=== PATIENT | male | born 1980 ===

== ENCOUNTER 2017-12-29 09:55 | Observation (INO) | payer OTHER ==
--- NOTE | 2017-12-29 10:21 | ED PDOC ---
HPI:STROKE - Time Time: 10:19 - Historian Historian: Patient - Chief Complaint Chief Complaint: other - Onset Date: 12/29/17 Time: 08:00 - Timing Timing: Currently Symptomatic - TPA Positive for Contraindication: Yes Reason tPA is not being Administered: NIH 0 - Notes: Notes:: Pt. with dizziness like room spinning. Goes away when laying down. Has left facial tingles and mild left mid head headache. Not worst in his life. Started at 8am. Dizziness happened 3 times and went away. No chest pain, dyspnea, weakness, vision changes. No leg or arm weakness. NIHSS Stroke Scale - Date/Time Evaluation Performed Date Performed: 12/29/17 Time Performed: 10:24 When Was NIHSS Performed: Baseline - How Severe is the Stroke Level of Consciousness: 0=Alert LOC to Questions: 0=Both comments correct LOC to commands: 0=Obeys both correctly Best Gaze: 0=Normal Visual: 0=No visual loss Facial: 0=Normal Motor Arm - Left: 0=No drift Motor Arm - Right: 0=No drift Motor Leg - Left: 0=No drift Motor Leg - Right: 0=No drift Limb Ataxia: 0=Absent Sensory: 0=Normal Best Language: 0=No aphasia Dysarthia: 0=Normal articulation Extinction & Inattention (Neglect): 0=Normal, no object Score: 0 rTPA Inclusion/Exclusion - Refusal of Treatment Patient Refused Treatment: No - Inclusion Criteria for Altepase Patient is 18 years or Older: Yes The Clinical Diagnosis of Ischemic Stroke That is Causing a Potentially Disabling Neurological Deficit: No Time of Onset is Well Established to be Less Than 270 Minute Before Treatment Would Begin: Yes Risk/Benefit Discussed With Patient/Family Member Present: No Past Medical History Reviewed: Nursing Documentation, Vital Signs Vital Signs: Last Vital Signs Temp 98.5 F 12/29/17 10:02 Pulse 76 12/29/17 10:02 Resp 19 12/29/17 10:02 BP 166/72 H 12/29/17 10:02 Pulse Ox 99 12/29/17 10:02 - Medical History PMH: HTN (not taking meds) - Surgical History Surgical History: No Surg Hx - Family History Family History: States: Unknown Family Hx - Living Arrangements Living Arrangements: With Family - Social History Alcohol: None Drugs: Denies - Home Medications Home Medications: Ambulatory Orders Medication Instructions Recorded No Known Home Med 12/29/17 - Allergies Allergies/Adverse Reactions: Allergies Allergy/AdvReac Type Severity Reaction Status Date / Time ibuprofen Allergy RASH Verified 12/29/17 10:20 Review of Systems ROS Statement: Except As Marked, All Systems Reviewed And Found Negative Neurological: Positive for: Headache, Dizziness Physical Exam - Reviewed Nursing Documentation Reviewed: Yes Vital Signs Reviewed: Yes - Physical Exam Appears: Positive for: Non-toxic, No Acute Distress Head Exam: Positive for: ATRAUMATIC, NORMAL INSPECTION, NORMOCEPHALIC Skin: Positive for: Normal Color, Warm, DRY Eye Exam: Positive for: EOMI, Normal appearance, PERRL ENT: Positive for: Normal ENT Inspection Neck: Positive for: Normal, Painless ROM Cardiovascular/Chest: Positive for: Regular Rate, Rhythm Respiratory: Positive for: CNT, Normal Breath Sounds Gastrointestinal/Abdominal: Positive for: Normal Exam, Soft. Negative for: Tenderness Back: Positive for: Normal Inspection. Negative for: L CVA Tenderness, R CVA Tenderness Extremity: Positive for: Normal ROM. 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 Negative for: Motor/Sensory Deficits, Aphasia, Facial Droop - Laboratory Results Result Diagrams: 12/29/17 10:33 12/29/17 10:33 Interpretation Of Abn Labs: no acute - ECG ECG: Positive for: Interpreted By Me, Viewed By Me ECG Rhythm: Positive for: Normal QRS, Normal ST Segment, Sinus Rhythm O2 Sat by Pulse Oximetry: 99 Pulse Ox Interpretation: Normal - Radiology X-Ray: Read By Radiologist X-Ray Interpretation: No Acute Disease - CT Scan/US ct Other Rad Studies (CT/US): Read By Radiologist Other Rad Interpretation: no acute - Progress ED Course And Treament: 1026: Stable. AAOx3. Dr. Heller spoken to about case. Made aware of all findings and presentation. States pt. is not a thrombolytic candidate at this time. 1152: Pt. will need admit for further evaluation and treatment as discussed with Dr. Heller. Spoke with hospitalist who will admit. Disposition - Clinical Impression Clinical Impression: CVA (cerebral vascular accident) - Patient ED Disposition Is Patient to be Admitted: Yes Counseled Patient/Family Regarding: Studies Performed, Diagnosis - Disposition Disposition Time: 12:02 Condition: FAIR - Pt Status Changed To: Hospital Disposition Of: Observation - POA Present On Arrival: None
[2017-12-29 10:39] LABS: BASO % 0.4 % (0.0-2.0); EOS % 0.5 % (0.0-4.0); HEMOGLOBIN 15.1 g/dL (12.0-18.0); LYMPH # 1.9 K/uL (1.0-4.3); LYMPH % 28.5 % (20.0-40.0); MEAN CELL VOLUME 84.7 fl (80.0-94.0); MEAN CORPUSCULAR HEMOGLOBIN 29.1 pg (27.0-31.0); MEAN CORPUSCULAR HGB CONC 34.3 g/dL (33.0-37.0); MEAN PLATELET VOLUME 7.9 fl (7.2-11.7); MONO # 0.8 K/uL (0.0-0.8); MONO % 12.2 % (0.0-10.0); NEUT # 3.8 K/uL (1.8-7.0); NEUT % 58.4 % (50.0-75.0); NRBC % 0.1 % (0.0-0.0); RBC 5.2 Mil/uL (4.40-5.90); RED CELL DISTRIBUTION WIDTH 13.8 % (11.5-14.5); WHITE BLOOD COUNT 6.6 K/uL (4.8-10.8)
--- NOTE | 2017-12-29 10:39 | CT ---
Date of service: 12/29/2017 PROCEDURE: CT HEAD WITHOUT CONTRAST. HISTORY: code stroke COMPARISON: None available. TECHNIQUE: Axial computed tomography images were obtained through the head/brain without intravenous contrast. Radiation dose: Total exam DLP = 853.41 mGy-cm. This CT exam was performed using one or more of the following dose reduction techniques: Automated exposure control, adjustment of the mA and/or kV according to patient size, and/or use of iterative reconstruction technique. FINDINGS: HEMORRHAGE: No intracranial hemorrhage. BRAIN: No mass effect or edema. No atrophy or chronic microvascular ischemic changes. VENTRICLES: Unremarkable. No hydrocephalus. CALVARIUM: Unremarkable. PARANASAL SINUSES: Unremarkable as visualized. No significant inflammatory changes. MASTOID AIR CELLS: Unremarkable as visualized. No inflammatory changes. OTHER FINDINGS: None. IMPRESSION: Unremarkable noncontrast head CT. Follow-up CT or MRI are available as clinically warranted. Findings discussed with Dr. Bronson with written down and read back verification 12/29/2017 at 10:35 a.m..
[2017-12-29 10:45] LABS: INR 1.1; PROTHROMBIN TIME 11.7 Seconds (9.8-13.1)
[2017-12-29 10:48] LABS: PARTIAL THROMBOPLASTIN TIME 36.6 Seconds (25.6-37.1)
[2017-12-29 10:56] LABS: ALB/GLOB RATIO 1.2 (1.0-2.1); ALBUMIN 4.5 g/dL (3.5-5.0); ALT/SGPT 49 U/L (21-72); AST/SGOT 48 U/L (17-59); BLOOD UREA NITROGEN 10 mg/dl (9-20); CALCIUM 9.6 mg/dL (8.4-10.2); GFR NON-AFRICAN AMERICAN > 60; HDL CHOLESTEROL 47 MG/DL (30-70)
[2017-12-29 11:08] LABS: LDL CHOLESTEROL 120 mg/dL (0-129)
--- NOTE | 2017-12-29 11:24 | RAD ---
Date of service: 12/29/2017 HISTORY: Code Stroke COMPARISON: No prior. FINDINGS: LUNGS: The lungs are well inflated and clear. PLEURA: No significant pleural effusion identified, no pneumothorax apparent. CARDIOVASCULAR: Normal. OSSEOUS STRUCTURES: No significant abnormalities. VISUALIZED UPPER ABDOMEN: Normal. OTHER FINDINGS: None. IMPRESSION: No active pulmonary disease.
[2017-12-29] MEDS: Sodium Chloride 0.9% 1,000 ML IV SCH ×2 (12:20→21:44)
--- NOTE | 2017-12-29 13:09 | CP.PCM.HP ---
History of Present Illness - History of Present Illness History of Present Illness: 37 yo Male with history of remote Hypertension and Asthma presented because of Left facial numbness that started this morning when he was walking to work. He states that this left facial numbness was located all over the face and the lateral portion of the head. It is described as a burning and itching sensation. The left facial numbness was associated with 3 dizziness spells which were described as he was spinning and associated with heaviness in bilateral lower extremities and palpitations. He did not fall or lose consciousness with these three separate dizziness spells. Denies Headaches, changes in vision, rashes, molar/chewing pain, ear pain, one sided weakness, tingling elsewhere on the body, chest pain or shortness of breath. Medical history: Pt reports medical history of HTN that was diagnosed 10 years ago. He does not take any anti-hypertensive medications. He reports he was also diagnosed with Asthma but last use of pump was last year. Family Hx: Mother had hypertension and at an unknown age from stroke. Social History: Social drinker, denies smoking and illicit drug use. Surgical history: Denies surgical history. PMD: Dr. Delores Lopez Present on Admission - Present on Admission Any Indicators Present on Admission: No History of DVT/PE: No History of Uncontrolled Diabetes: No Urinary Catheter: No Decubitus Ulcer Present: No Review of Systems - Constitutional Constitutional: absent: Chills, Fatigue, Fever, Frequent Falls, Headache - EENT Eyes: Change in Vision. absent: Blurred Vision, Photophobia - Cardiovascular Cardiovascular: Palpitations. absent: Chest Pain, Chest Pain at Rest, Chest Pain with Activity, Claudication, Diaphoresis, Dyspnea, Dyspnea on Exertion - Respiratory Respiratory: absent: Cough, Dyspnea, Dyspnea on Exertion, Wheezing, Chest Congestion - Gastrointestinal Gastrointestinal: absent: Abdominal Pain, Diarrhea, Nausea, Vomiting - Genitourinary Genitourinary: absent: Change in Urinary Stream, Difficulty Urinating, Dysuria, Nocturia, Urinary Incontinence Additional comments: denies fecal incontinence. - Musculoskeletal Musculoskeletal: Tingling (Left facial tingling and burning sensation. ). absent: Muscle Weakness, Numbness - Neurological Neurological: Burning Sensations (left facial burning. ), Dizziness, Numbness ( left facial numbness). absent: Abnormal Gait, Abnormal Hearing, Abnormal Movements, Confusion, Frequent Falls, Headaches, Syncope, Vertigo, Weakness Past Patient History - Past Social History Smoking Status: Never Smoked Chewing Tobacco Use: No Cigar Use: No Alcohol: None Drugs: Denies - CARDIAC Hx Hypertension: Yes (not taking meds) - PULMONARY Hx Asthma: Yes - PSYCHIATRIC Hx Substance Use: No - SURGICAL HISTORY Hx Surgeries: No Meds Allergies/Adverse Reactions: Allergies Allergy/AdvReac Type Severity Reaction Status Date / Time ibuprofen Allergy RASH Verified 12/29/17 10:20 Physical Exam - Constitutional Appears: Well, Non-toxic, No Acute Distress - Head Exam Head Exam: NORMAL INSPECTION - Eye Exam Eye Exam: EOMI, Normal appearance, Nystagmus (nystamus present upward. ), PERRL - ENT Exam ENT Exam: Mucous Membranes Moist, Normal External Ear Exam, Normal Oropharynx - Respiratory Exam Respiratory Exam: Clear to Auscultation Bilateral, NORMAL BREATHING PATTERN. absent: Decreased Breath Sounds, Rales, Rhonchi, Wheezes, Respiratory Distress, Stridor - Cardiovascular Exam Cardiovascular Exam: REGULAR RHYTHM, RRR, +S1, +S2. absent: Diastolic murmur, Gallop, JVD, Rubs, +S4, Systolic Murmur - GI/Abdominal Exam GI & Abdominal Exam: Normal Bowel Sounds, Soft. absent: Diminished Bowel Sounds , Distended, Firm, Guarding, Pulsatile Mass, Rebound, Rigid, Tenderness - Extremities Exam Extremities exam: Positive for: normal inspection - Neurological Exam Neurological exam: Alert, Oriented x3 Additional comments: Finger to nose test demonstrated coordination. No slurred speech. Strength 5/5 bilaterally all extremities. Sensation in tact bilaterally. - Psychiatric Exam Psychiatric exam: Normal Affect, Normal Mood - Skin Skin Exam: Dry, Intact, Normal Color, Warm Results - Vital Signs Recent Vital Signs: Last Vital Signs Temp 98.5 F 12/29/17 10:02 Pulse 69 12/29/17 12:45 Resp 19 12/29/17 12:45 BP 145/84 12/29/17 12:45 Pulse Ox 99 12/29/17 12:45 - Labs Result Diagrams: 12/29/17 10:33 12/29/17 10:33 Labs: Laboratory Results - last 24 hr 12/29/17 12/29/17 12/29/17 10:14 10:33 10:33 WBC 6.6 RBC 5.20 Hgb 15.1 Hct 44.1 MCV 84.7 MCH 29.1 MCHC 34.3 RDW 13.8 Plt Count 271 MPV 7.9 Neut % (Auto) 58.4 Lymph % (Auto) 28.5 [place] % (Auto) 12.2 H Eos % (Auto) 0.5 Baso % (Auto) 0.4 Neut # (Auto) 3.8 Lymph # (Auto) 1.9 [place] # (Auto) 0.8 Eos # (Auto) 0.0 Baso # (Auto) 0.0 PT INR APTT Sodium 140 Potassium 3.8 Chloride 106 Carbon Dioxide 28 Anion Gap 10 BUN 10 Creatinine 0.9 Est GFR ( Amer) > 60 Est GFR (Non-Af Amer) > 60 POC Glucose (mg/dL) 90 Random Glucose 95 Calcium 9.6 Total Bilirubin 0.5 AST 48 ALT 49 Alkaline Phosphatase 69 Troponin I < 0.0120 Total Protein 8.2 Albumin 4.5 Globulin 3.7 Albumin/Globulin Ratio 1.2 Triglycerides 149 Cholesterol 205 H LDL Cholesterol Direct 120 HDL Cholesterol 47 Blood Type Antibody Screen BBK History Checked 12/29/17 12/29/17 10:33 10:33 WBC RBC Hgb Hct MCV MCH MCHC RDW Plt Count MPV Neut % (Auto) Lymph % (Auto) [place] % (Auto) Eos % (Auto) Baso % (Auto) Neut # (Auto) Lymph # (Auto) [place] # (Auto) Eos # (Auto) Baso # (Auto) PT 11.7 INR 1.1 APTT 36.6 Sodium Potassium Chloride Carbon Dioxide Anion Gap BUN Creatinine Est GFR ( Amer) Est GFR (Non-Af Amer) POC Glucose (mg/dL) Random Glucose Calcium Total Bilirubin AST ALT Alkaline Phosphatase Troponin I Total Protein Albumin Globulin Albumin/Globulin Ratio Triglycerides Cholesterol LDL Cholesterol Direct HDL Cholesterol Blood Type O POSITIVE Antibody Screen Negative BBK History Checked No verified bt Assessment & Plan - Assessment and Plan (Free Text) Assessment: 37 yo M with remote history of Hypertension and asthma presents with left facial numbness. CT head without contrast negative. Given symptoms, rule out TIA and cerebellar stroke and optimize blood pressure. Plan: 1. Left Facial numbness - R/O TIA - Acute, improved - CT head without contrast- Negative - EKG - normal sinus rhythm - Labs reviewed- CBC and CMP within normal limits. - F/U carotid duplex - F/U MRI head 2. Dizziness - R/O TIA vs. Cerebellar stroke - Acute, Dizziness has now resolved - EKG - Normal sinus rhythm - F/U MRI head - F/U Carotid duplex - TSH level- 2.27. 3. Hypertension - Chronic, not on home medications - Stable - BP on admission was 166/72. - Continue to monitor. 4. DVT prophylaxis - SCD's and ambulation. Patient at very low risk for DVT given age and no risk factors.
--- NOTE | 2017-12-29 16:18 | CARD ---
APPROVED REPORT Date of service: 12/29/2017 <Conclusion> Normal sinus rhythm Normal ECG
--- NOTE | 2017-12-29 18:38 | MRI ---
Date of service: 12/29/2017 PROCEDURE: MRI BRAIN WITHOUT CONTRAST HISTORY: R/O TIA and Cerebellar stroke. COMPARISON: None available. TECHNIQUE: Multiplanar, multisequence MR images of the brain were obtained without intravenous contrast enhancement. FINDINGS: HEMORRHAGE: None DWI: No evidence of an acute or early subacute infarction. BRAIN PARENCHYMA: There multiple punctate long TR hyperintensities identified in the subcortical white matter of the bilateral frontal lobes approaching the vertex. Corpus callosum is spared. There is borderline prominence of white matter signal change at the left occipital periventricular white-matter. The bilateral frontal white matter changes may be posttraumatic but ultimately there etiology is indeterminate. There is a broad differential diagnosis. Follow-up contrast MRI is advised for added characterization. Nevertheless, good corticomedullary differentiation is appreciated throughout the brain and there is no mass effect. Proportional ventricular sulcal and cisternal spaces are identified and there is no suspicious extra-axial fluid collection appreciated. Posterior fossa contents appear unremarkable including the brainstem. VENTRICLES: Unremarkable. No hydrocephalus. CRANIUM: Unremarkable. ORBITS: Grossly unremarkable. PARANASAL SINUSES/MASTOIDS: Clear VASCULAR SYSTEM: Skull base flow voids intact. OTHER FINDINGS: None. IMPRESSION: Limited white-matter signal abnormalities are appreciate the bilateral frontal subcortical white matter approaching the vertex. This could be posttraumatic though this is not definite. Limited left occipital periventricular white matter signal changes are not excluded with remaining white matter normal including the corpus callosum. The appearance is nonspecific. Follow-up contrast MRI is advised for added characterization.
--- NOTE | 2017-12-29 20:29 | CP.PCM.CON ---
History of Present Illness - History of Present Illness History of Present Illness: Neurology Consultation Note: Mr. Audie Gonsales is a 37-year-old man with no significant past medical history , who presented to the ED complaining of several episodes of vertigo, dizziness , headache, facial numbness and bilateral lower extremity weakness. He states that during these episodes, he also has palpitations and feels light-headed. Currently, he is feeling well, but when he stands up, he still fells dizzy some times. Imaging was normal, including MRI that showed only a few left frontal T2 hyperintensities, but no acute findings. Past Patient History - Past Medical History & Family History Past Medical History?: Yes - Past Social History Smoking Status: Never Smoked Chewing Tobacco Use: No Cigar Use: No Alcohol: None Drugs: Denies - CARDIAC Hx Hypertension: Yes (not taking meds) - PULMONARY Hx Asthma: Yes - NEUROLOGICAL Hx Neurological Disorder: No - HEENT Hx HEENT Problems: No - RENAL Hx Chronic Kidney Disease: No - ENDOCRINE/METABOLIC Hx Endocrine Disorders: No - HEMATOLOGICAL/ONCOLOGICAL Hx Blood Disorders: No Hx AIDS: No Hx Human Immunodeficiency Virus (HIV): No - INTEGUMENTARY Hx Dermatological Problems: No - MUSCULOSKELETAL/RHEUMATOLOGICAL Hx Musculoskeletal Disorders: No Hx Falls: No - GASTROINTESTINAL Hx Gastrointestinal Disorders: No - GENITOURINARY/GYNECOLOGICAL Hx Genitourinary Disorders: No - PSYCHIATRIC Hx Substance Use: No - SURGICAL HISTORY Hx Surgeries: No - ANESTHESIA Hx Anesthesia: No Hx Anesthesia Reactions: No Hx Malignant Hyperthermia: No Has any member of the family had a problem w/ anesthesia?: No Meds Allergies/Adverse Reactions: Allergies Allergy/AdvReac Type Severity Reaction Status Date / Time ibuprofen Allergy RASH Verified 12/29/17 10:20 - Medications Medications: Current Medications Acetaminophen (Tylenol 325mg Tab) 650 mg PO Q6 PRN PRN Reason: Pain, moderate (4-7) Aspirin (Ecotrin) 81 mg PO DAILY JENNIFER Enoxaparin Sodium (Lovenox) 40 mg SC DAILY JENNIFER PRN Reason: Protocol Sodium Chloride (Sodium Chloride 0.9%) 1,000 mls @ 100 mls/hr IV .Q10H JENNIFER Last Admin: 12/29/17 12:20 Dose: 100 mls/hr Physical Exam - Neurological Exam Neurological exam: Alert, CN II-XII Intact, Normal Gait, Oriented x3, Reflexes Normal Results - Vital Signs Recent Vital Signs: Last Vital Signs Temp 97.9 F 12/29/17 19:46 Pulse 70 12/29/17 19:46 Resp 16 12/29/17 19:46 BP 154/81 H 12/29/17 19:46 Pulse Ox 98 12/29/17 19:46 - Labs Result Diagrams: 12/29/17 10:33 12/29/17 10:33 Labs: Laboratory Results - last 24 hr 12/29/17 12/29/17 12/29/17 10:14 10:33 10:33 WBC 6.6 RBC 5.20 Hgb 15.1 Hct 44.1 MCV 84.7 MCH 29.1 MCHC 34.3 RDW 13.8 Plt Count 271 MPV 7.9 Neut % (Auto) 58.4 Lymph % (Auto) 28.5 [place] % (Auto) 12.2 H Eos % (Auto) 0.5 Baso % (Auto) 0.4 Neut # (Auto) 3.8 Lymph # (Auto) 1.9 [place] # (Auto) 0.8 Eos # (Auto) 0.0 Baso # (Auto) 0.0 PT INR APTT Sodium 140 Potassium 3.8 Chloride 106 Carbon Dioxide 28 Anion Gap 10 BUN 10 Creatinine 0.9 Est GFR ( Amer) > 60 Est GFR (Non-Af Amer) > 60 POC Glucose (mg/dL) 90 Random Glucose 95 Hemoglobin A1c Calcium 9.6 Total Bilirubin 0.5 AST 48 ALT 49 Alkaline Phosphatase 69 Troponin I < 0.0120 Total Protein 8.2 Albumin 4.5 Globulin 3.7 Albumin/Globulin Ratio 1.2 Triglycerides 149 Cholesterol 205 H LDL Cholesterol Direct 120 HDL Cholesterol 47 TSH 3rd Generation Blood Type Antibody Screen BBK History Checked 12/29/17 12/29/17 12/29/17 10:33 10:33 10:33 WBC RBC Hgb Hct MCV MCH MCHC RDW Plt Count MPV Neut % (Auto) Lymph % (Auto) [place] % (Auto) Eos % (Auto) Baso % (Auto) Neut # (Auto) Lymph # (Auto) [place] # (Auto) Eos # (Auto) Baso # (Auto) PT 11.7 INR 1.1 APTT 36.6 Sodium Potassium Chloride Carbon Dioxide Anion Gap BUN Creatinine Est GFR ( Amer) Est GFR (Non-Af Amer) POC Glucose (mg/dL) Random Glucose Hemoglobin A1c 5.5 Calcium Total Bilirubin AST ALT Alkaline Phosphatase Troponin I Total Protein Albumin Globulin Albumin/Globulin Ratio Triglycerides Cholesterol LDL Cholesterol Direct HDL Cholesterol TSH 3rd Generation Blood Type O POSITIVE Antibody Screen Negative BBK History Checked No verified bt 12/29/17 13:48 WBC RBC Hgb Hct MCV MCH MCHC RDW Plt Count MPV Neut % (Auto) Lymph % (Auto) [place] % (Auto) Eos % (Auto) Baso % (Auto) Neut # (Auto) Lymph # (Auto) [place] # (Auto) Eos # (Auto) Baso # (Auto) PT INR APTT Sodium Potassium Chloride Carbon Dioxide Anion Gap BUN Creatinine Est GFR ( Amer) Est GFR (Non-Af Amer) POC Glucose (mg/dL) Random Glucose Hemoglobin A1c Calcium Total Bilirubin AST ALT Alkaline Phosphatase Troponin I Total Protein Albumin Globulin Albumin/Globulin Ratio Triglycerides Cholesterol LDL Cholesterol Direct HDL Cholesterol TSH 3rd Generation 2.27 Blood Type Antibody Screen BBK History Checked Assessment & Plan (1) Vestibular migraine Assessment and Plan: Will start magnesium oxide 400 mg BID for prophylaxis for now as well as aspirin 81 mg daily. Cardiac work-up is also recommended. PT/OT eval and treat if needed. Will follow up with the patient in the outpatient office. Status: Acute Priority: High
[2017-12-29] MEDS: Magnesium Oxide 400 mg Tab UD PO SCH (21:39)
[2017-12-30 04:49] VITALS: RESP 18
[2017-12-30 08:17] VITALS: BP 117/69; TEMP 98
[2017-12-30] MEDS: Sodium Chloride 0.9% 1,000 ML IV SCH (09:42)
[2017-12-30] MEDS: Enoxaparin 40 mg Syringe SC SCH ×2 (09:44→09:46)
[2017-12-30] MEDS: Magnesium Oxide 400 mg Tab UD PO SCH (09:44)
[2017-12-30] MEDS ORDERED: Pneumococcal 23-Valent Vaccine IM ONE (10:00)
[2017-12-30 10:22] VITALS: PULSE 69; O2SAT 98
--- NOTE | 2017-12-30 12:52 | US ---
Date of service: 12/29/2017 PROCEDURE: Duplex ultrasound of the carotid and vertebral arteries. HISTORY: R/O TIA COMPARISON: None available. TECHNIQUE: Grayscale and duplex Doppler evaluation of the cervical carotid and vertebral arteries were performed. The common carotid, carotid bifurcations and cervical ICA and proximal ECA were evaluated. The vertebral arteries were evaluated for gross patency and direction. FINDINGS: There is intimal thickening in bilateral common carotid arteries. RIGHT CAROTID ARTERIES: Common Carotid Artery: Normal. Maximal flow velocity of 138.7 cm/s. Carotid Bifurcation: Normal. Internal Carotid Artery:Normal. Maximal flow velocity of 101.5 cm/s. External Carotid Artery (proximal branches): Normal. Maximal flow velocity of 75.3 cm/s. ICA/CCA Ratio: 0.9 LEFT CAROTID ARTERIES: Common Carotid Artery: Normal. Maximal flow velocity of 189.6 cm/s. Carotid Bifurcation: Normal. Internal Carotid Artery:Normal. Maximal flow velocity of 117.7 cm/s. External Carotid Artery (proximal branches): Normal. Maximal flow velocity of 91.9 cm/s. ICA/CCA Ratio: 1.0 VERTEBRAL ARTERIES: Right Vertebral Artery: Patent. Antegrade flow. Left Vertebral Artery: Patent. Antegrade flow. OTHER FINDINGS: None. IMPRESSION: 1. Moderately increased peak systolic velocity in bilateral common carotid arteries. 2. No evidence of hemodynamically significant stenosis in the internal carotid arteries by peak systolic velocity criteria. 3. Patent bilateral vertebral arteries with antegrade flow.
--- NOTE | 2017-12-30 13:10 | CP.PCM.DIS ---
Provider - Provider Date of Admission: 12/29/17 12:01 Attending physician: Denilson Llanes MD Primary care physician: Dr. Delores Lopez Consults: Neurology- Dr. Heller Time Spent in preparation of Discharge (in minutes): 30 Diagnosis - Discharge Diagnosis (1) Facial weakness Status: Acute Comment: Negative TIA workup. CT head, MRI head without contrast, EKG and carotid doppler were negative for TIA (2) Vestibular migraine Status: Acute Priority: High Comment: Given dizziness symptoms- possibly due to vestibular headache. Hospital Course - Lab Results Lab Results: Most Recent Lab Values WBC 6.6 K/uL (4.8-10.8) 12/29/17 10:33 RBC 5.20 Mil/uL (4.40-5.90) 12/29/17 10:33 Hgb 15.1 g/dL (12.0-18.0) 12/29/17 10:33 Hct 44.1 % (35.0-51.0) 12/29/17 10:33 MCV 84.7 fl (80.0-94.0) 12/29/17 10:33 MCH 29.1 pg (27.0-31.0) 12/29/17 10:33 MCHC 34.3 g/dL (33.0-37.0) 12/29/17 10:33 RDW 13.8 % (11.5-14.5) 12/29/17 10:33 Plt Count 271 K/uL (130-400) 12/29/17 10:33 MPV 7.9 fl (7.2-11.7) 12/29/17 10:33 Neut % (Auto) 58.4 % (50.0-75.0) 12/29/17 10:33 Lymph % (Auto) 28.5 % (20.0-40.0) 12/29/17 10:33 [place] % (Auto) 12.2 % (0.0-10.0) H 12/29/17 10:33 Eos % (Auto) 0.5 % (0.0-4.0) 12/29/17 10:33 Baso % (Auto) 0.4 % (0.0-2.0) 12/29/17 10:33 Neut # (Auto) 3.8 K/uL (1.8-7.0) 12/29/17 10:33 Lymph # (Auto) 1.9 K/uL (1.0-4.3) 12/29/17 10:33 [place] # (Auto) 0.8 K/uL (0.0-0.8) 12/29/17 10:33 Eos # (Auto) 0.0 K/uL (0.0-0.7) 12/29/17 10:33 Baso # (Auto) 0.0 K/uL (0.0-0.2) 12/29/17 10:33 PT 11.7 Seconds (9.8-13.1) 12/29/17 10:33 INR 1.1 12/29/17 10:33 APTT 36.6 Seconds (25.6-37.1) 12/29/17 10:33 Sodium 140 mmol/l (132-148) 12/29/17 10:33 Potassium 3.8 MMOL/L (3.6-5.0) 12/29/17 10:33 Chloride 106 mmol/L (98-107) 12/29/17 10:33 Carbon Dioxide 28 mmol/L (22-30) 12/29/17 10:33 Anion Gap 10 (10-20) 12/29/17 10:33 BUN 10 mg/dl (9-20) 12/29/17 10:33 Creatinine 0.9 mg/dl (0.8-1.5) 12/29/17 10:33 Est GFR ( Amer) > 60 12/29/17 10:33 Est GFR (Non-Af Amer) > 60 12/29/17 10:33 POC Glucose (mg/dL) 90 mg/dL (65-110) 12/29/17 10:14 Random Glucose 95 mg/dL (75-110) 12/29/17 10:33 Hemoglobin A1c 5.5 % (4.2-6.5) 12/29/17 10:33 Calcium 9.6 mg/dL (8.4-10.2) 12/29/17 10:33 Total Bilirubin 0.5 mg/dl (0.2-1.3) 12/29/17 10:33 AST 48 U/L (17-59) 12/29/17 10:33 ALT 49 U/L (21-72) 12/29/17 10:33 Alkaline Phosphatase 69 U/L (38-126) 12/29/17 10:33 Troponin I < 0.0120 ng/mL (0.00-0.120) 12/29/17 10:33 Total Protein 8.2 G/DL (6.3-8.2) 12/29/17 10:33 Albumin 4.5 g/dL (3.5-5.0) 12/29/17 10:33 Globulin 3.7 gm/dL (2.2-3.9) 12/29/17 10:33 Albumin/Globulin Ratio 1.2 (1.0-2.1) 12/29/17 10:33 Triglycerides 149 mg/DL (0-149) 12/29/17 10:33 Cholesterol 205 mg/dL (0-199) H 12/29/17 10:33 LDL Cholesterol Direct 120 mg/dL (0-129) 12/29/17 10:33 HDL Cholesterol 47 MG/DL (30-70) 12/29/17 10:33 TSH 3rd Generation 2.27 mIU/ML (0.46-4.68) 12/29/17 13:48 Blood Type O POSITIVE 12/29/17 10:33 Antibody Screen Negative 12/29/17 10:33 BBK History Checked No verified bt 12/29/17 10:33 - Hospital Course Hospital Course: 37 yo Male with history of remote Hypertension and Asthma presented because of Left facial numbness that started this morning when he was walking to work. He states that this left facial numbness was located all over the face and the lateral portion of the head. It is described as a burning and itching sensation. The left facial numbness was associated with 3 dizziness spells which were described as he was spinning and associated with heaviness in bilateral lower extremities and palpitations. He did not fall or lose consciousness with these three separate dizziness spells. Denies Headaches, changes in vision, rashes, molar/chewing pain, ear pain, one sided weakness, tingling elsewhere on the body, chest pain or shortness of breath. ED course: V/S: V/S: BP: 166/72 HR: 76 98%-RA ; RR: 18 - Labs: 6.6 > 15.1 / 44.1 <291 140/ 3.8 ; 106/28 ; 10/0.9 <95 LDL: 120 ; HDL: 47 ; Cholesterol: 205 ; HgA1c: 5.5 ; T TSH: 2.27 - CT scan of the head - unremarkable. - MRI of the head: no evidence of acute infarction. - Carotid U/S: negative for stenosis. - EKG: normal sinus rhythm; normal EKG. Chest Xray- Negative. - Patient was admitted to telemetry r/o TIA. Floor course: Patient was vitally stable on the floor. His dizziness and Left facial numbness resolved while on the floor. Neurology consult was appreciated- Dr. Heller. Possible vestibular migraine and patient was given Magnesium oxide 400mg po BID. Blood pressure was stable during his hospital course. Discharge Exam - Head Exam Head Exam: NORMAL INSPECTION - Respiratory Exam Respiratory Exam: Clear to PA & Lateral, NORMAL BREATHING PATTERN, UNREMARKABLE. absent: Decreased Breath Sounds, Rales, Rhonchi, Wheezes, Respiratory Distress, Stridor - Cardiovascular Exam Cardiovascular Exam: REGULAR RHYTHM, RRR, +S1, +S2. absent: Diastolic murmur, JVD, Rubs, +S4, Systolic Murmur - GI/Abdominal Exam GI & Abdominal Exam: Normal Bowel Sounds, Soft. absent: Distended, Firm, Guarding, Organomegaly, Pulsatile Mass, Rebound, Rigid, Tenderness - Neurological Exam Neurological exam: Alert, Oriented x3 - Psychiatric Exam Psychiatric exam: Normal Affect, Normal Mood - Skin Skin Exam: Dry, Intact, Normal Color, Warm Discharge Plan - Discharge Medications Prescriptions: Aspirin [Ecotrin] 81 mg PO DAILY #30 tabec Magnesium Oxide [Mag-Ox] 400 mg PO BID #30 tab - Follow Up Plan Condition: GOOD Disposition: HOME/ ROUTINE Patient education suggested?: Yes Instructions: Migraine Headache (DC) Additional Instructions: Follow up with Dr. Heller within 1 week. Follow up with either Dr. Lopez or in [facility] in 1-[address] Cuellar, PGY1. Continue Magnesium Oxide 400mg po twice a day. Continue Aspirin 81mg po daily. Referrals: [facility] [place] [Outside] Samuel Heller MD [Medical Doctor] - Delores Kim MD [Staff Provider] -
== END 2017-12-30 11:22 | disposition home or self-care (01) ==
LOC: H.ER 09:55 → H.ERHOLD 12:01 → H.TEL 14:15
PROVIDERS: ADMIT Internal Medicine; ATTEND Internal Medicine
DX: G43.809 Other migraine, not intractable, without status migrainosus (principal); I10 Essential (primary) hypertension; J45.909 Unspecified asthma, uncomplicated; R29.810 Facial weakness; Z82.3 Family history of stroke; Z82.49 Family history of ischemic heart disease and other diseases of the circulatory system; Z88.6 Allergy status to analgesic agent
CPT/HCPCS: 70450; 70551; 71045; 80053; 80061; 82948; 83036; 84443; 84484; 85025; 85610; 85730; 86850; 86900; 93005; 93880; 97161; 99285; G0378; G8978; G8979; G8980; J7030

== ENCOUNTER 2018-01-26 10:56 | Emergency (ER) | payer OTHER ==
[2018-01-26 11:01] VITALS: RESP 17
[2018-01-26 11:18] VITALS: O2SAT 98
--- NOTE | 2018-01-26 11:39 | ED PDOC ---
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 Patient reports yesterday after work he felt weak, tired and sleepy. He states 3 weeks ago he was diagnosed with hypertension and was sent here by his PMD for further check up. Patient states he was given medication for hypertension that made him feel worse on the first day, better later but again made him feel "bad" and stopped taking it. Patient reports he had CT and MRI here in the ER before along with blood tests that show no acute findings. He states he asked his PMD for the head CT results and he was told it was normal but he should have another CT. Patient tried to make an appointment with a neurologist to obtain CT image but he was unable to do so due to insurance problems. He is concerned because his mother had hypertension and with stroke in her head. Patient reports having headache before but denying it now stating it resolved on its own. He also reports palpitations, some numbness and tingling to his feet and toes and experiencing mild dizziness. He states on Thursday he felt the need of air and used his inhaler that he stopped using a while ago. Patient states is eating healthy, no salty food and denies vomiting, nausea or diarrhea. PMD: Dr. Delores Lopez Past Medical History Reviewed: Historical Data, Nursing Documentation, Vital Signs Vital Signs: Last Vital Signs Temp 98.5 F 01/26/18 11:01 Pulse 80 01/26/18 11:01 Resp 17 01/26/18 11:01 BP 158/84 H 01/26/18 11:01 Pulse Ox 98 01/26/18 11:09 - Medical History PMH: Asthma, HTN (not taking meds) Denies: HIV, Chronic Kidney Disease - Surgical History Surgical History: No Surg Hx - Family History Family History: States: Unknown Family Hx - Social History Current smoker - smoking cessation education provided: No Alcohol: None Drugs: Denies - Home Medications Home Medications: Ambulatory Orders Medication Instructions Recorded Aspirin [Ecotrin] 81 mg PO DAILY #30 tabec 12/30/17 Magnesium Oxide [Mag-Ox] 400 mg PO BID #30 tab 12/30/17 - Allergies Allergies/Adverse Reactions: Allergies Allergy/AdvReac Type Severity Reaction Status Date / Time ibuprofen Allergy RASH Verified 12/29/17 10:20 Review of Systems ROS Statement: Except As Marked, All Systems Reviewed And Found Negative Gastrointestinal: Negative for: Nausea, Vomiting, Diarrhea Neurological: Positive for: Weakness, Numbness, Dizziness (mild). Negative for: Headache Physical Exam - Reviewed Nursing Documentation Reviewed: Yes Vital Signs Reviewed: Yes - Physical Exam Appears: Positive for: Non-toxic, No Acute Distress Head Exam: Positive for: ATRAUMATIC, NORMOCEPHALIC Skin: Positive for: Normal Color, Warm, Dry Eye Exam: Positive for: Normal appearance, EOMI, PERRL ENT: Positive for: Normal ENT Inspection Neck: Positive for: Normal, Painless ROM, Supple Cardiovascular/Chest: Positive for: Regular Rate, Rhythm Respiratory: Positive for: Normal Breath Sounds Gastrointestinal/Abdominal: Positive for: Normal Exam, Soft. Negative for: T enderness Back: Positive for: Normal Inspection. Negative for: L CVA Tenderness, R CVA Tenderness Extremity: Positive for: Normal ROM. 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 Negative for: Motor/Sensory Deficits, Aphasia, Facial Droop - Laboratory Results Result Diagrams: 01/26/18 12:00 01/26/18 12:00 Interpretation Of Abn Labs: no acute - ECG ECG: Positive for: Interpreted By Me, Viewed By Me ECG Rhythm: Positive for: Normal QRS, Normal ST Segment, Sinus Rhythm O2 Sat by Pulse Oximetry: 98 (RA) Pulse Ox Interpretation: Normal - Progress ED Course And Treament: 1500: Pending crisis eval. 1545: Crisis to see pt. Dr. Tierney to . Medical Decision Making Medical Decision Making: Time: 1140 Initial Plan: --EKG --CMP --Magnesium --Phosphorous --Troponin I --Crisis evaluation --CBC --PTT --PT --NaCl 1,000 ml IV MRI on 12/29 and neurology showed no acute findings. Scribe Attestation: Documented by Lashonda Moses, acting as a scribe for Todd Bronson MD. Provider Scribe Attestation: All medical record entries made by the Scribe were at my direction and personally dictated by me. I have reviewed the chart and agree that the record accurately reflects my personal performance of the history, physical exam, medical decision making, and the department course for this patient. I have also personally directed, reviewed, and agree with the discharge instructions and disposition. Disposition - Clinical Impression Clinical Impression: Generalized muscle weakness - Patient ED Disposition Is Patient to be Admitted: Transfer of Care - Disposition Disposition: Transfer of Care Disposition Time: 15:46 Condition: STABLE Patient Signed Over To: Bryan Tierney
[2018-01-26] MEDS ORDERED: Sodium Chloride 0.9% 1,000 ML IV STA (11:40)
[2018-01-26 12:10] LABS: BASO % 0.5 % (0.0-2.0); EOS % 0.2 % (0.0-4.0); HEMOGLOBIN 16.1 g/dL (12.0-18.0); LYMPH # 1.7 K/uL (1.0-4.3); LYMPH % 24.4 % (20.0-40.0); MEAN CELL VOLUME 86.4 fl (80.0-94.0); MEAN CORPUSCULAR HEMOGLOBIN 29.2 pg (27.0-31.0); MEAN CORPUSCULAR HGB CONC 33.9 g/dL (33.0-37.0); MEAN PLATELET VOLUME 8.1 fl (7.2-11.7); MONO # 0.7 K/uL (0.0-0.8); MONO % 10.1 % (0.0-10.0); NEUT # 4.5 K/uL (1.8-7.0); NEUT % 64.8 % (50.0-75.0); NRBC % 0.1 % (0.0-0.0); RBC 5.5 Mil/uL (4.40-5.90); RED CELL DISTRIBUTION WIDTH 13.3 % (11.5-14.5); WHITE BLOOD COUNT 6.9 K/uL (4.8-10.8)
[2018-01-26 12:15] LABS: INR 1.1; PROTHROMBIN TIME 12.2 Seconds (9.8-13.1)
[2018-01-26 12:18] LABS: PARTIAL THROMBOPLASTIN TIME 38.7 Seconds (25.6-37.1)
[2018-01-26 12:33] LABS: ALB/GLOB RATIO 1.1 (1.0-2.1); ALBUMIN 4.5 g/dL (3.5-5.0); ALT/SGPT 44 U/L (21-72); AST/SGOT 33 U/L (17-59); BLOOD UREA NITROGEN 10 mg/dl (9-20); CALCIUM 9.5 mg/dL (8.4-10.2); GFR NON-AFRICAN AMERICAN > 60
--- NOTE | 2018-01-26 15:44 | CARD ---
APPROVED REPORT Date of service: 01/26/2018 EKG Measurement Heart [id number] ID [id number] <Conclusion> Normal sinus rhythm Normal ECG
--- NOTE | 2018-01-26 16:21 | ED PDOC ---
- Laboratory Results Result Diagrams: 01/26/18 12:00 01/26/18 12:00 - ECG O2 Sat by Pulse Oximetry: 98 (RA) Pulse Ox Interpretation: Normal Medical Decision Making Medical Decision Makin Patient endorsed by Dr. Bronson pending crisis evaluation. Scribe Attestation: Documented by Lashonda Moses, acting as a scribe for Bryan Tierney MD. Provider Scribe Attestation: All medical record entries made by the Scribe were at my direction and personally dictated by me. I have reviewed the chart and agree that the record accurately reflects my personal performance of the history, physical exam, medical decision making, and the department course for this patient. I have also personally directed, reviewed, and agree with the discharge instructions and disposition. Disposition Doctor Will See Patient In The: Office Counseled Patient/Family Regarding: Studies Performed, Diagnosis, Need For Followup - Clinical Impression Clinical Impression: Generalized muscle weakness, Anxiety - POA Present On Arrival: None - Disposition Referrals: [facility] [Outside] [facility] [Outside] Disposition: Routine/Home Disposition Time: 17:52 Condition: GOOD Additional Instructions: DIANA GREEN, thank you for letting us take care of you today. Your provider was Bryan Tierney MD and you were treated for WEAKNESS. The emergency medical care you received today was directed at your acute symptoms. If you were prescribed any medication, please fill it and take as directed. It may take several days for your symptoms to resolve. Return to the Emergency Department if your symptoms worsen, do not improve, or if you have any other problems. Please contact your doctor or call one of the physicians/clinics you have been referred to that are listed on the Patient Visit Information form that is included in your discharge packet. Bring any paperwork you were given at discharge with you along with any medications you are taking to your follow up visit. Our treatment cannot replace ongoing medical care by a primary care provider outside of the emergency department. Thank you for allowing the [facility] team to be part of your care today. If you had an X-Ray or CT scan: A Radiologist will review the ED reading if any change in treatment is needed we will contact you. If you had a blood, urine, or wound culture: It will take several days for the results, if any change in treatment is needed we will contact you. If you had an STI test: It will take 48 hours for the results. Please call after 1 week if you have not heard back. Instructions: Weakness (ED), Anxiety, Adult (DC) Print Language: GERMAN
[2018-01-26 18:41] VITALS: BP 120/70; PULSE 84; TEMP 98
== END 2018-01-26 18:41 | disposition home or self-care (01) ==
LOC: H.ER 10:56
DX: M62.81 Muscle weakness (generalized) (principal); F41.9 Anxiety disorder, unspecified
CPT/HCPCS: 80053; 83735; 84100; 84484; 85025; 85610; 85730; 93005; 96360; 99283; J7030

== ENCOUNTER 2018-01-30 20:17 | Emergency (ER) | payer OTHER ==
[2018-01-30 20:31] VITALS: TEMP 98.3
[2018-01-30 21:34] LABS: BASO # 0.1 K/uL (0.0-0.2); BASO % 0.4 % (0.0-2.0); EOS % 0.3 % (0.0-4.0); HEMOGLOBIN 15.6 g/dL (12.0-18.0); LYMPH # 2.6 K/uL (1.0-4.3); LYMPH % 21.8 % (20.0-40.0); MEAN CELL VOLUME 85.1 fl (80.0-94.0); MEAN CORPUSCULAR HEMOGLOBIN 28.3 pg (27.0-31.0); MEAN CORPUSCULAR HGB CONC 33.2 g/dL (33.0-37.0); MONO # 1.1 K/uL (0.0-0.8); MONO % 9.1 % (0.0-10.0); NEUT # 8.1 K/uL (1.8-7.0); NEUT % 68.4 % (50.0-75.0); RBC 5.53 Mil/uL (4.40-5.90); RED CELL DISTRIBUTION WIDTH 13.3 % (11.5-14.5); WHITE BLOOD COUNT 11.9 K/uL (4.8-10.8)
[2018-01-30] MEDS ORDERED: Sodium Chloride 0.9% 1,000 ML IV STA (21:34)
[2018-01-30] MEDS ORDERED: Magnesium Sulfate 2 gm/50 ml 2 GM/50 ML BAG IV STA (21:34)
[2018-01-30] MEDS ORDERED: Magnesium Sulfate 2 gm/50 ml 2 GM/50 ML BAG ONE (21:44)
[2018-01-30 22:10] LABS: ALB/GLOB RATIO 1.1 (1.0-2.1); ALBUMIN 4.6 g/dL (3.5-5.0); ALT/SGPT 30 U/L (21-72); AST/SGOT 31 U/L (17-59); BLOOD UREA NITROGEN 18 mg/dl (9-20); CALCIUM 9.9 mg/dL (8.4-10.2); GFR NON-AFRICAN AMERICAN > 60
[2018-01-30 22:26] LABS: BARBITURATES, UR NEGATIVE (NEGATIVE); BENZODIAZEPINES, UR NEGATIVE (NEGATIVE); OPIATES, UR NEGATIVE (NEGATIVE); PHENCYCLIDINE, UR NEGATIVE (NEGATIVE)
--- NOTE | 2018-01-30 23:22 | ED PDOC ---
HPI: Chest Pain Time Seen by Provider: 01/30/18 20:31 Chief Complaint (Nursing): Chest Pain Chief Complaint (Provider): Chest Pain History Per: Patient History/Exam Limitations: no limitations Onset/Duration Of Symptoms: Hrs (x4 hours ago ) Additional Complaint(s): Segun Gonsales is a 38 year old male with a past medical history of HTN, who presents to the emergency department complaining of chest pain and headache since x16:00 today. Patient has had a work up x1 month ago for headache with tingling to extremities and face but work up was negative for stroke. Patient was diagnosed with vestibular migraines. He reports he had similar symptoms in the past. Patient came to the hospital in the past week but was told to go to the medical clinic because of underlying anxiety, however, he was unable to see anyone at the clinic. Patient had similar symptoms today and states that his heart rate was in the 130s and that his systolic was in the 190s. PMD: Delores Herrera Past Medical History Reviewed: Historical Data, Nursing Documentation, Vital Signs Vital Signs: Last Vital Signs Temp 98.3 F 01/30/18 20:26 Pulse 97 H 01/30/18 21:59 Resp 16 01/30/18 21:59 BP 128/69 01/30/18 21:59 Pulse Ox 98 01/30/18 21:59 - Medical History PMH: Asthma, HTN (not taking meds) Denies: HIV, Chronic Kidney Disease - Surgical History Surgical History: No Surg Hx - Family History Family History: States: Unknown Family Hx - Home Medications Home Medications: Ambulatory Orders Medication Instructions Recorded Aspirin [Ecotrin] 81 mg PO DAILY #30 tabec 12/30/17 Magnesium Oxide [Mag-Ox] 400 mg PO BID #30 tab 12/30/17 - Allergies Allergies/Adverse Reactions: Allergies Allergy/AdvReac Type Severity Reaction Status Date / Time ibuprofen Allergy RASH Verified 12/29/17 10:20 Review of Systems ROS Statement: Except As Marked, All Systems Reviewed And Found Negative Cardiovascular: Positive for: Chest Pain Neurological: Positive for: Numbness, Headache Physical Exam - Reviewed Nursing Documentation Reviewed: Yes Vital Signs Reviewed: Yes - Physical Exam Appears: Positive for: Non-toxic, No Acute Distress Head Exam: Positive for: ATRAUMATIC, NORMOCEPHALIC Skin: Positive for: Normal Color, Warm, Dry Eye Exam: Positive for: Normal appearance, EOMI, PERRL ENT: Positive for: Normal ENT Inspection Neck: Positive for: Normal, Painless ROM, Supple Cardiovascular/Chest: Positive for: Regular Rate, Rhythm. Negative for: Murmur Respiratory: Positive for: Normal Breath Sounds. Negative for: Respiratory Distress Gastrointestinal/Abdominal: Positive for: Normal Exam, Soft. Negative for: Tenderness Back: Positive for: Normal Inspection. Negative for: L CVA Tenderness, R CVA Tenderness, Vertebral Tenderness Extremity: Positive for: Normal ROM. Negative for: Pedal Edema, Deformity Neurologic/Psych: Positive for: Alert, Oriented (x3), Mood/Affect (anxious ). Negative for: Motor/Sensory Deficits - Laboratory Results Result Diagrams: 01/30/18 21:18 01/30/18 21:18 - ECG O2 Sat by Pulse Oximetry: 98 (RA) Pulse Ox Interpretation: Normal Medical Decision Making Medical Decision Making: Initial Time: 20:56 Initial Impression: Non specific headache and numbness recently excluded stroke Initial Plan: --CMP --Drug screen --Troponin --CBC with differential --EKG --crisis evaluation --EDnurtx --Toradol 30 mg IV --Magnesium sulfate 2 gm in 50 ml IV --Reglan 10 mg IVPB --NS 1L Time: 0240 --Re-eval: patient reports improvement with headache. Upon crisis evaluation, patient is medically stable and requires no further treatment in the ED at this time. Counseling was provided and all questions were answered regarding diagnosis. There is agreement to discharge plan. Return if symptoms persist or worsen. Clinical Impression: Anxiety; Migraine Scribe Attestation: Documented by Chip Swain and Radha Miller, acting as scribes for Hiro Burger MD. Provider Scribe Attestation: All medical record entries made by the Scribe were at my direction and pe rsonally dictated by me. I have reviewed the chart and agree that the record accurately reflects my personal performance of the history, physical exam, medical decision making, and the department course for this patient. I have also personally directed, reviewed, and agree with the discharge instructions and disposition. Disposition - Clinical Impression Clinical Impression: Anxiety, Migraine - Patient ED Disposition Is Patient to be Admitted: No Counseled Patient/Family Regarding: Studies Performed, Diagnosis - Disposition Disposition: Routine/Home Disposition Time: 02:40 Condition: STABLE Instructions: Anxiety, Adult (DC), Migraine Headaches in Adults Forms: [facility] (Ecuadorean) Print Language: GHANAIAN
[2018-01-31 02:46] VITALS: PULSE 77; RESP 16
[2018-01-31 02:49] VITALS: BP 123/71
[2018-01-31 02:58] VITALS: O2SAT 98
--- NOTE | 2018-01-31 12:30 | CARD ---
APPROVED REPORT Date of service: 01/30/2018 EKG Measurement Heart [id number] <Conclusion> Normal sinus rhythm with sinus arrhythmia Normal ECG
== END 2018-01-31 02:56 | disposition home or self-care (01) ==
LOC: H.ER 20:17
DX: G43.909 Migraine, unspecified, not intractable, without status migrainosus (principal); F41.9 Anxiety disorder, unspecified; I10 Essential (primary) hypertension; J45.909 Unspecified asthma, uncomplicated; Z79.82 Long term (current) use of aspirin
CPT/HCPCS: 80053; 80324; 80345; 80346; 80349; 80353; 80358; 80361; 83992; 84484; 85025; 93005; 96365; 96375; 99285; J1885; J2765; J7030